=== PATIENT | female | born 1935 | race Caucasian/White ===

== ENCOUNTER 2016-12-20 18:51 | Emergency (ER) | payer MEDICARE, BC ==
[2016-12-20 20:03] VITALS: BP 147/77
[2016-12-20] MEDS: Acetaminophen TAB* 325 MG PO ONE ×2 (20:12→20:17)
--- NOTE | 2016-12-20 21:20 | RAD ---
INDICATION: Pain at the left hip and buttock. COMPARISON: None TECHNIQUE: 3 views of the left hip were obtained. FINDINGS: The visualized bones of the left hip are well-corticated and properly aligned. Degenerative changes include mild narrowing of the joint space and sclerotic change of the acetabular roof. There is a mild degree of marginal osteophyte formation. There is no radiographic evidence of acute fracture or dislocation. IMPRESSION: Mild degenerative changes of the left hip without radiographic evidence of acute fracture or dislocation. If the patient's symptoms persist follow-up imaging is recommended.
--- NOTE | 2016-12-20 21:28 | RAD ---
Indication: Right knee and lower leg pain Comparison: None. Technique: AP and lateral views right lower leg. Report: The visualized bones are adequately corticated and well aligned. There is no acute fracture, dislocation or other focal abnormality. The soft tissues appear grossly normal. IMPRESSION: Normal right lower leg radiograph. If the patient's symptoms persist, follow-up imaging is recommended.
--- NOTE | 2016-12-20 21:40 | UC ---
Minor Trauma HPI - HPI Summary HPI Summary: 81 yo female tripped while shopping c/o left hip buttock pain and right prox tib/fib pain able to bear wt no head injury or neck pain - History of Current Complaint Chief Complaint: UCLowerExtremity Stated Complaint: RIGHT LEG INJURY Time Seen by Provider: 12/20/16 19:56 Hx Obtained From: Patient Onset/Duration: Sudden Onset Onset Of Pain: Immediate Severity Initially: Moderate Severity Currently: Moderate Pain Intensity: 7 Pain Scale Used: 0-10 Numeric Mechanism Of Injury: Fall From A Standing Position Aggravating Factor(s): Ambulation, Weight Bearing Alleviating Factor(s): Rest Associated Signs And Symptoms: Positive: Ecchymosis, Swelling - Risk Factors Penetrating Injury Risk Factors: Negative - Allergies/Home Medications Allergies/Adverse Reactions: Allergies Allergy/AdvReac Type Severity Reaction Status Date / Time Sulfa Antibiotics Allergy Hives Verified 12/20/16 19:48 Home Medications: Home Medications Ciprofloxacin TAB* [Cipro 500 MG TAB*] 500 mg PO BID 12/20/16 [History Confirmed 12/20/16] Famotidine TAB* [Pepcid 20 MG TAB*] 40 mg PO DAILY 12/20/16 [History Confirmed 12/20/16] amLODIPine TAB* [Norvasc 5 mg TAB*] 10 mg PO DAILY 12/20/16 [History Confirmed 12/20/16] PMH/Surg Hx/FS Hx/Imm Hx Previously Healthy: Yes Endocrine History Of: Reports: Thyroid Disease - Hypothyroidism Cardiovascular History Of: Reports: Hypertension Cancer History Of: Denies: Breast Cancer - Surgical History Surgical History: Yes Surgery Procedure, Year, and Place: hysterectomy. neck fusion. bilateral RC surgery. bilateral carpal tunnel - Family History Known Family History: Positive: Hypertension - Social History Alcohol Use: None Substance Use Type: None Smoking Status (MU): Former Smoker Type: Cigarettes Amount Used/How Often: Some Day Smoker Length of Time of Smoking/Using Tobacco: 22 YEARS Have You Smoked in the Last Year: No When Did the Patient Quit Smoking/Using Tobacco: 1978 - Immunization History Most Recent Influenza Vaccination: April 2015 Review of Systems Constitutional: Negative Skin: Bruising Eyes: Negative ENT: Negative Respiratory: Negative Cardiovascular: Negative Gastrointestinal: Negative Genitourinary: Negative Motor: Negative Neurovascular: Negative Musculoskeletal: Arthralgia, Myalgia Neurological: Negative Psychological: Negative All Other Systems Reviewed And Are Negative: Yes Physical Exam Triage Information Reviewed: Yes Appearance: Well-Appearing, No Pain Distress, Well-Nourished Vital Signs: Initial Vital Signs Temp 98.3 F 12/20/16 19:52 Pulse 95 12/20/16 19:52 Resp 18 12/20/16 19:52 BP 147/77 12/20/16 19:52 Pulse Ox 98 12/20/16 19:52 Eyes: Positive: Conjunctiva Clear ENT: Positive: Hearing grossly normal. Negative: Nasal congestion, Nasal drainage, Trismus, Muffled/hoarse voice Neck: Positive: Supple, Nontender Respiratory: Positive: Lungs clear, Normal breath sounds, No respiratory distress, No accessory muscle use Cardiovascular: Positive: RRR, No Murmur Musculoskeletal: Positive: Other: - see image Neurological: Positive: Alert Psychological Exam: Normal Skin Exam: Other - see image Minor Trauma Course/Dx - Differential Dx/Diagnosis Provider Diagnoses: Fall. right arm contusion. right lower leg hematoma. left hip/buttock contusion Discharge - Discharge Plan Condition: Stable Disposition: HOME Patient Education Materials: Hematoma (ED), Hip Contusion (ED) Referrals: Jennifer Marin PA [Primary Care Provider] - Additional Instructions: rest elevate ice tylenol as needed for pain see your provider next week for reevaluation chio wrap remove at betime rewrap in AM walker I expect the bruising to worsen please return for any concerns Images Front/Back of Body, Lg ([place]): 1 - large hematoma overlying proximal fibula 2 - tender 3 - tender 4 - ecchymosis. FROM
== END 2016-12-20 21:52 | disposition home or self-care (01) ==
LOC: UCCORT 18:51
DX: S40.021A Contusion of right upper arm, initial encounter (principal); S80.11XA Contusion of right lower leg, initial encounter; S70.02XA Contusion of left hip, initial encounter; S30.0XXA Contusion of lower back and pelvis, initial encounter; W01.198A Fall on same level from slipping, tripping and stumbling with subsequent striking against other object, initial encounter; Y93.89 Activity, other specified; Y92.512 Supermarket, store or market as the place of occurrence of the external cause; Z88.2 Allergy status to sulfonamides; E03.9 Hypothyroidism, unspecified; I10 Essential (primary) hypertension; Z90.710 Acquired absence of both cervix and uterus; Z87.891 Personal history of nicotine dependence
CPT/HCPCS: 99212; A9270-GY; G0463

== ENCOUNTER 2019-07-12 13:49 | Emergency (ER) | payer MEDICARE, BC ==
--- OUTSIDE RECORDS SUMMARY | 2019-07-12 13:58 | XMS REPORT | Continuity of Care Document ---
:1935 External Reference #:[id number] Author Name SARITA Heredia (transmitted by agent of provider Mk Alaniz) Address [address] [place] [address] Care Team Providers Name Role Phone Jennifer Marin RPA - Medical Care Team Information Telegraph Office Telephone Clerk Problems Active Problems Provider Date Hypothyroidism Jennifer Marin PA Onset: 12/06/2018 Essential hypertension Jennifer Marin, PA Onset: 02/19/2019 Calcification of mitral valve Jennifer Marin, PA Onset: 02/19/2019 Chronic kidney disease stage 3 Jennifer Marin, PA Onset: 02/19/2019 Hypertriglyceridemia Jennifer Marin, PA Onset: 02/19/2019 Edema of lower extremity Jenniferfaith Marin, PA Onset: 02/19/2019 History of thromboembolism of vein Jennifer Tomas, PA Onset: 02/19/2019 Note: (L) pelvis 12/2017 Degenerative joint disease involving multiple Jennifer [place], PA Onset: joints Note: lumbar, cervical, knees, A-C joints, foot, shoulder, hip Systemic lupus erythematosus Jennifer Tomas, PA Onset: 02/19/2019 Note: remission per rheumatology Diverticular disease of colon Jennifer [place], PA Onset: 02/19/2019 Polyp of colon Jennifer [place], PA Onset: 02/19/2019 Note: hyperplastic 2005 Gastroesophageal reflux disease with hiatal Jennifer [place], PA Onset: 02/19 hernia Gastric ulcer Jennifer [place], PA Onset: 02/19/2019 Note: 07/2018 Increased creatine kinase level Jennifer Tomas, PA Onset: 02/19/2019 Note: chronic Intermittent asthma Jennifer Marin, PA Onset: 02/19/2019 Chronic cystitis SARITA Heredia 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 Simple renal cyst SARITA Heredia Onset: 02/19/2019 Benign paroxysmal positional vertigo Jennifer SARITA Marin Onset: 02/19/2019 Social History Type Date Description Comments Sex Unknown ETOH Use Consumes Alcohol Socially Tobacco Use Start: Unknown End: Unknown Patient is a former smoker Smoking Status Reviewed: 06/11/19 Patient is a former smoker Allergies, Adverse Reactions, Alerts Active Allergies Reaction Severity Comments Date Nabumetone 01/17/2018 Nitrofurantoin 01/17/2018 Phenazopyridine 01/17/2018 Cephalexin 01/17/2018 Sulfa Antibiotics 01/17/2018 Nabumetone 02/11/2019 Detrol 02/11/2019 Flagyl 02/11/2019 Levofloxacin 02/11/2019 Paroxetine 02/11/2019 Medications Active Medications SIG Qnty Indications Ordering Date Provider PT Order Continue PT 2 M21.372 Rohit 06/11/2019 times per week MD Kade Nystatin apply twice 30gm Rohit 02/11/2019 [id number]/GM daily until rash MD Kade Powder clears Omeprazole 1 by mouth every 90caps Rohit 02/11/2019 40mg Capsules day MD MIKEL Braun Amlodipine Besylate 1 tab by mouth 180tabs 02/11/2019 5mg twice a day MD Kade Tablets Methenamine Hippurate take 1 tablet by 45tabs 02/11/2019 1gm mouth every MD Kade Tablets other day. Metoclopramide HCL 1 by mouth every 30tabs Rohit 02/11/2019 10mg day MD Kade Tablets Dispers Mupirocin apply to 22gm 02/07/2019 2% Ointment affected area MD Kade three times a day as needed Celecoxib take one capsule 30caps Rohit 12/10/2018 100mg Capsules by mouth once a MD Kade day with food, as needed for pain Fenofibrate Take One Tablet 90tabs Rohit 12/10/2018 145mg Tablets By Mouth Every MD Kade Day Levothyroxine Sodium 1 by mouth every 90tabs Rohit 12/06/2018 day MD Kade 100mcg Tablets Gabapentin take 1 capsule 30caps Rohit 11/12/2018 300mg Capsules by mouth at MD Kade bedtime Tizanidine HCL one by mouth Unknown 4mg every 8 hours as Capsules needed muscle spasms History Medications Lidoderm 1 apply to Jessikaundominique Braun, 02/11/2019 - 5% affected area 12 02/19/2019 [place] hours on, 12 hours off Immunizations CPT Code Status Date Vaccine Lot # [id number] Given 05/28/2018 Influenza Virus Vaccine, Quadrivalent, Split, Preservative Free 17497 Given 07/04/2016 Influenza Virus Vaccine, Quadrivalent, Split, Preservative Free 68581 Given 07/13/2015 Influenza Virus Vaccine, Quadrivalent, Split, Preservative Free 29081 Given 06/17/2015 Pneumonia Vaccine 96303 Given 06/17/2015 Influenza Virus Vaccine, Quadrivalent, Split, Preservative Free 65173 Given 12/12/2013 Tdap - Tetanus/Diptheria/Acellular Pertussis 38361 Given 05/14/2012 Pneumonia Vaccine Vital Signs Date Vital Result Comment 06/11/2019 1:02pm Height 60 inches 5'0" Weight 129.19 lb Heart Rate 78 /min BP Systolic Sitting 136 mmHg BP Diastolic Sitting 78 mmHg O2 % BldC Oximetry 94 % BMI (Body Mass Index) 25.2 kg/m2 02/19/2019 1:29pm Height 60 inches 5'0" Weight 123.31 lb Heart Rate 76 /min BP Systolic Sitting 140 mmHg BP Diastolic Sitting 70 mmHg O2 % BldC Oximetry 95 % BMI (Body Mass Index) 24.1 kg/m2 Results Test Date Facility Test Result H/L Range Note Urine Culture And 02/19/2019 [facility] Urine Culture SEE RESULT 1, [address] [place] [address] [phone] 1 [id number] 2 SEE RESULT BELOW Name: CRYS TONG : [address]: Jennifer STEIN Acct: [id number] Unit: [id number] AGE: 83 Location: [facility] Re02/19/19 SEX: F Status: REG REF SPEC: [id number] STEVE: 02/19/19-[address] [facility] [address]: Jennifer STEIN REQ: [id number] RECD: 02/19/19 STATUS: COMP _ SOURCE: URINE SPDESC: ORDERED: Urine Culture COMMENTS: [id number] QUERIES: Urine Source: Random Procedure Result Reported Site Urine Culture Final 02/20/19- 1611 ML No Growth (<1,000 CFU/mL) * ML - Main Lab . END OF REPORT DEPARTMENT OF PATHOLOGY, [address] [place] [address] Jay Godfrey M.D. Director [facility] # [id number] Procedures Date Code Description Status 08/02/2018 15142904 Colonoscopy Completed 01/15/2015 53403070 Mammogram Completed 07/07/2008 329136005 Bone Mineral Density Test Completed Medical Devices Description No Information Available Encounters Type Date Location Provider Dx Diagnosis Office Visit 02/19/2019 [facility] Jennifer Marin, I10 Essential ( primary) 1:30p PA hypertension N30.20 Other chronic cystitis without hematuria E78.1 Pure hyperglyceridemia E03.9 Hypothyroidism, unspecified Assessments Date Code Description Provider 06/11/2019 I10 Essential (primary) hypertension Jennifer Marin, PA 06/11/2019 M21.372 Foot drop, left foot Jennifer Marin, PA 02/19/2019 I10 Essential (primary) hypertension Jennifer Marin, PA 02/19/2019 N30.20 Other chronic cystitis without hematuria Jennifer Marin , PA 02/19/2019 E78.1 Pure hyperglyceridemia Jennifer Marin, PA 02/19/2019 E03.9 Hypothyroidism, unspecified Jennifer [place], PA Plan of Treatment 06/11/2019 - Jennifer Marin, PAI10 Essential (primary) hypertensionComments: Current medication(s): Amlodipine 5mg dailyFollow up:6 qyqocfH73.372 Foot drop , left footNew Medication:PT Order - Continue PT 2 times per week Functional Status Description No Information Available Mental Status Description No Information Available Referrals Description No Information Available
[2019-07-12 14:16] VITALS: BP 140/68
--- NOTE | 2019-07-12 14:25 | UC ---
Complaint Female HPI - HPI Summary HPI Summary: 84 y/o female presents to the urgent care c/o burning and frequency on urination since yesterday. Voiding frequently small amount. Pt reports Hx of bladder prolapse and Hx of recurrent UTI's. she knows when she has a UTI and when symptoms develop she needs to be Tx immediately before symptoms worsen. Pt has been drinking a lot of water and denies fever, flank pain, lower back pain, HOLT, dizziness, SOB, chest pain, abdominal pain, N/V/d, vaginal discharge. Pt allergic to sulfa drugs. - History Of Current Complaint Chief Complaint: UCGU Stated Complaint: URINARY Time Seen by Provider: 07/12/19 14:24 Hx Obtained From: Patient, Family/Weight Checker - sister ?: No Onset/Duration: Gradual Onset, Lasting Days - 1 day, Still Present Timing: Intermittent, Lasting Seconds Severity Initially: Mild Severity Currently: Moderate Pain Intensity: 7 - pain on urination Pain Scale Used: 0-10 Numeric Character: Burning Aggravating Factor(s): Urination Alleviating Factor(s): Nothing Associated Signs And Symptoms: Positive: Negative. Negative: Fever, Back Pain, Vaginal Discharge, Nausea Related Hx: Similar Episode/Dx as: - UTI - Risk Factors Ectopic Risk Factor: Negative Ovarian Torsion Risk Factor: Negative - Allergies/Home Medications Allergies/Adverse Reactions: Allergies Allergy/AdvReac Type Severity Reaction Status Date / Time Sulfa (Sulfonamide Allergy Unknown Hives Verified 07/12/19 14:04 Antibiotics) Home Medications: Home Medications Gabapentin CAP(*) [Neurontin 300 CAP(*)] 300 mg PO BEDTIME 07/12/19 [History Confirmed 07/12/19] Methenamine 1 gm EVERY OTHER DAY 07/12/19 [History Confirmed 07/12/19] celeCOXIB CAP* [Celebrex CAP*] 100 mg PO DAILY 07/12/19 [History Confirmed 07/12] PMH/Surg Hx/FS Hx/Imm Hx Previously Healthy: Yes Endocrine History: Hypothyroidism Cardiovascular History: Hypertension GI/ History: Gastroesophageal Reflux - Surgical History Surgical History: Yes Surgery Procedure, Year, and Place: hysterectomy. neck fusion. bilateral RC surgery 3 ON LEFT 1 ON RIGHT. bilateral carpal tunnel. BLADDER LIFT - 24 YRS AGO. BACK SURGERY 11/2017 - Family History Known Family History: Positive: Hypertension - Social History Occupation: Retired Lives: With Family Alcohol Use: None Substance Use Type: None Smoking Status (MU): Former Smoker Type: Cigarettes Amount Used/How Often: Some Day Smoker Length of Time of Smoking/Using Tobacco: 22 YEARS Have You Smoked in the Last Year: No When Did the Patient Quit Smoking/Using Tobacco: 1978 - Immunization History Most Recent Influenza Vaccination: April 2015 Review of Systems All Other Systems Reviewed And Are Negative: Yes Constitutional: Positive: Negative Skin: Positive: Negative Eyes: Positive: Negative ENT: Positive: Negative Respiratory: Positive: Negative Cardiovascular: Positive: Negative Gastrointestinal: Positive: Negative Genitourinary: Positive: Dysuria, Frequency, Urgency Motor: Positive: Negative Neurovascular: Positive: Negative Musculoskeletal: Positive: Negative Neurological: Positive: Negative Psychological: Positive: Negative Is Patient Immunocompromised?: No Physical Exam - Summary Physical Exam Summary: VITAL SIGNS: Reviewed. GENERAL: Patient is a well developed and nourished old female who is sitting comfortable in the chair table. Patient is not in any acute respiratory distress. HEAD AND FACE: No signs of trauma. No ecchymosis, hematomas or skull depressions. No sinus tenderness. EYES: PERRLA, EOMI x 2, No injected conjunctiva, clear watery eyes, no nystagmus. No photophobia. EARS: Hearing grossly intact. Ear canals and tympanic membranes are within normal limits. MOUTH: pharynx with no erythema, no exudates,no palatal petechiae. no B/L tonsillar enlargement Uvula in midline. NECK: Supple, trachea is midline, no lymphadenopathy, no JVD, no carotid bruit, no c-spine tenderness, neck with full ROM. CHEST: Symmetric, no tenderness at palpation LUNGS: Clear to auscultation bilaterally. No wheezing or crackles. CVS: Regular rate and rhythm, S1 and S2 present, no murmurs or gallops appreciated. ABDOMEN: Soft, non-tender. No signs of distention. No rebound no guarding, and no masses palpated. Bowel sounds are normal. BACK:no scoliosis or lesions, non tender to palpation, No B/L CVA tenderness EXTREMITIES: FROM in all major joints, no edema, no cyanosis or clubbing. NEURO: Alert and oriented x 3. No acute neurological deficits. Speech is normal and follows commands. SKIN: Dry and warm Triage Information Reviewed: Yes Vital Signs: Initial Vital Signs Temp 97.6 F 07/12/19 14:08 Pulse 78 07/12/19 14:08 Resp 18 07/12/19 14:08 BP 140/68 07/12/19 14:08 Pulse Ox 98 07/12/19 14:08 Complaint Female Dx - Course Course Of Treatment: 84 y/o female presents to the urgent care c/o burning and frequency on urination since yesterday. Voiding frequently small amount. Pt reports Hx of bladder prolapse and Hx of recurrent UTI's. she knows when she has a UTI and when symptoms develop she needs to be Tx immediately before symptoms worsen. Pt has been drinking a lot of water and denies fever, flank pain, lower back pain, HOLT, dizziness, SOB, chest pain, abdominal pain, N/V/d, vaginal discharge. Pt allergic to sulfa drugs. Hx obtained. UA and test ordered. UA results : Blood 1+, Leukoesterase 3+, Nitrates +. Pt Rx Keflex PO x 7 days. Pyridium 100mg PO TID x 2 days as directed below. Advised to increase fluid intake. Urine sent for culture if any abnormality Pt will be notified for further treatment. Pt's BP is elevated today advised to decrease salt in diet, monitor BP and f/u with PCP for further management. Pt advised If symptoms do not improve to return to the urgent care or f/u with PCP. Pt understood and agreed. Left the clinic ambulating w/ help of walker.. - Differential Dx/Diagnosis Differential Diagnosis/HQI/PQRI: Cervicitis, Renal Colic, Sexually Transmitted Disease, Urinary Tract Infection Provider Diagnosis: UTI (urinary tract infection), Uncontrolled hypertension Discharge ED - Sign-Out/Discharge Documenting (check all that apply): Patient Departure - d/c home All imaging exams completed and their final reports reviewed: No Studies - Discharge Plan Condition: Stable Disposition: HOME Prescriptions: Cephalexin CAP* [Keflex CAP*] 500 mg PO BID #14 cap Phenazopyridine TAB* [Pyridium 100 mg TAB*] 100 mg PO TID #6 tab Patient Education Materials: Urinary Tract Infection in Women (ED) Referrals: Jennifer Marin PA [Primary Care Provider] - 2 Days Additional Instructions: 1- Please take Keflex PO x 7 days. Pyridium 100 mg PO TID x 2 days to alleviate urinary symptoms. Increase increase fluid intake. drink cranberry juice. 2-Urine sent for culture if any abnormality, you will be notified for further treatment. 3-If symptoms do not improve please return to the urgent care or f/u with your PCP in 2-3 days . 4- Your BP is elevated today. please decrease salt in your diet, monitor BP and if it continues to be elevated please f/u with your PCP for further management. - Billing Disposition and Condition Condition: STABLE Disposition: Home - Attestation Statements Provider Attestation: This patient was not seen by me. I was available for consult. Chart reviewed YUDY
== END 2019-07-12 14:55 | disposition home or self-care (01) ==
LOC: UCCORT 13:49
DX: N39.0 Urinary tract infection, site not specified (principal); Z87.440 Personal history of urinary (tract) infections; I10 Essential (primary) hypertension; Z88.2 Allergy status to sulfonamides; Z87.891 Personal history of nicotine dependence
CPT/HCPCS: 81003; 87077; 87086; 87186; 99212; G0463